=== PATIENT | female | born 2000 | race Two or more races ===

== ENCOUNTER 2025-04-12 10:57 | Emergency (ER) | payer MEDICAID, SELFPAY ==
[2025-04-12 11:21] VITALS: BP 109/75; PULSE 73; RESP 18; TEMP 36.8; O2SAT 98; BMI 30.5
--- NOTE | 2025-04-12 11:35 | XR_ITS ---
EXAMINATION: US OB <= 14 weeks fetus ORDERING PROVIDER: AVA Ha HISTORY: vaginal bleeding TECHNIQUE: Multiplanar still ultrasonography of the pelvis was performed using grayscale imaging, supplemented by color and spectral Doppler as needed. Images were performed transabdominally. COMPARISON: None. FINDINGS: Uterus measures 9.2 x 5.3 x 6.6 cm. Within the fundus, there is a round fluid echogenicity measuring up to 1.4 cm. No yolk sac or pole are seen. Mean sac diameter corresponds to gestational age of 6 weeks 2 days. Right ovary measures 2.7 x 1.2 x 2.0 cm and demonstrates internal flow. Left ovary measures 4.7 x 2.5 x 3.1 cm and demonstrates internal flow. There is no fluid in the pouch of Patrick. IMPRESSION: Round fluid collection in the uterine fundus, which probably represents a gestational sac without yolk sac or pole identified. If this does represent a gestational sac, then clinical and sonographic dates are concordant. Recommend close clinical and imaging follow-up.
--- NOTE | 2025-04-12 11:36 | PD.EDABDPN ---
ED Abdominal Pain RME/HPI General Chief Complaint: Abdominal Pain Stated complaint: LOWER ABD/BACK PAIN, VAG BLEEDING Time seen by provider: 04/12/25 11:00 Arrival date/time: 04/12/25 10:57 24-year-old female with no known medical history presents to the emergency room with a chief complaint of vaginal bleeding and bilateral lower abdominal pain x 2 days Source: patient Mode of arrival: ambulatory Limitations: no limitations Related Data Allergies Allergy/AdvReac Type Severity Reaction Status Date / Time No Known Allergies Allergy Verified 04/12/25 11:02 Review of Systems Review of Systems Systems Reviewed: All systems reviewed, normal except as documented Constitutional Constitutional: Reports system reviewed and no additional complaints, except as documented, Denies fatigue, Denies fever(s), Denies headache(s) and Denies weakness Eyes Eyes: Reports system reviewed and no additional complaints, except as documented, Denies blurry vision and Denies change in vision ENT Ears, Nose, Mouth, and Throat: Reports system reviewed and no additional complaints, except as documented, Denies otalgia, Denies headache(s), Denies nasal congestion, Denies throat swelling and Denies vertigo Cardiovascular Cardiovascular: Reports system reviewed and no additional complaints, except as documented, Denies chest pain, Denies dyspnea and Denies dyspnea on exertion Respiratory Respiratory: Reports system reviewed and no additional complaints, except as documented, Denies chest congestion, Denies cough, Denies dyspnea, Denies dyspnea on exertion and Denies wheezing Gastrointestinal Gastrointestinal: Reports system reviewed and no additional complaints, except as documented, Reports abdominal pain, Reports cramping, Reports nausea and Denies vomiting Genitourinary Genitourinary: Reports system reviewed and no additional complaints, except as documented Musculoskeletal Musculoskeletal: Reports system reviewed and no additional complaints, except as documented and Denies back pain Integumentary/Breasts Skin/Breast: Reports system reviewed and no additional complaints, except as documented and Denies wounds Neurologic Neurologic: Reports system reviewed and no additional complaints, except as documented, Denies confusion, Denies headache(s), Denies lack of coordination, Denies vertigo and Denies weakness Psychiatric Psychiatric: Reports system reviewed and no additional complaints, except as documented, Denies anxiety, Denies confusion, Denies depression, Denies paranoia, Denies suicidal ideation and Denies tactile hallucinations Endocrine Endocrine: Reports system reviewed and no additional complaints, except as documented and Denies fatigue Hematologic/Lymphatic Hematologic/Lymphatic: Reports system reviewed and no additional complaints, except as documented and Denies lymphadenopathy Allergic/Immunologic Allergic/Immunologic: Reports system reviewed and no additional complaints, except as documented, Denies throat swelling, Denies urticaria and Denies wheezing Past Medical History Social History SMOKING STATUS: Never smoker ED Exam General Limitations: Present no limitations General appearance: Present alert and in no apparent distress Head Head exam: Present atraumatic Eye Eye exam: Present normal appearance, PERRL and EOMI ENT ENT exam: Present normal exam, normal oropharynx and mucous membranes moist Neck Neck exam: Present normal inspection, full ROM and trachea midline Chest Chest inspection: Present normal inspection and symmetric chest wall rise Respiratory Respiratory exam: Present normal lung sounds bilaterally Cardiovascular Cardiovascular exam: Present regular rate, normal rhythm and normal heart sounds Abdominal Exam Abdominal exam: Present soft and normal bowel sounds Extremities Exam Extremities exam: Present normal inspection and full ROM Back Exam Back exam: Present normal inspection and full ROM Neurological Exam Neurological exam: Present alert, oriented X3 and CN II-XII intact Psychiatric Psychiatric exam: Present normal affect and normal mood Skin Skin exam: Present warm, dry, intact and normal color Course Quality Measures none Orders Category Date Time Status US OB <= 14 weeks fetus Stat Exams 04/12/25 11:35 Completed ABO/RH Type Stat Lab 04/12/25 11:46 Completed Beta HCG,Quantitative Stat Lab 04/12/25 11:46 Completed CBC Stat Lab 04/12/25 11:46 Completed CMP [Comprehensive Metabolic Panel] Stat Lab 04/12/25 11:46 Completed UA [Urinalysis] Stat Lab 04/12/25 11:48 Completed Vital Signs Vital signs: Vital Signs Temperature 98.2 F 04/12/25 11:21 Pulse Rate 73 04/12/25 11:21 Respiratory Rate 18 04/12/25 11:21 Blood Pressure 109/75 04/12/25 11:21 Pulse Oximetry (%) 98 04/12/25 11:21 Oxygen Delivery Method Room Air 04/12/25 11:21 Abdominal Pain MDM MDM Narrative MDM Narrative:: 24-year-old female with no known medical history presents to the emergency room with a chief complaint of vaginal bleeding and bilateral lower abdominal pain x 2 days Patient is hemodynamically stable and in no apparent distress Physical examination shows bilateral lower abdominal tenderness with palpation. Ultrasound OB shows a at 6 weeks and 2 days. Currently there is no heart tones or yolk sac. hCG levels are at 31,000. Patient was educated to return to the emergency room in 3 days for repeat blood work and ultrasound to assess for viability There is no ectopic Patient was discharged and educated to follow-up with primary care provider in the next 24 to 48 hours and return to the emergency room for any evidence of worsening signs or symptoms Patient data External records reviewed:: [facility] previous records Clinical information provided by:: patient Social determinants that could affect healthcare access:: none Patient has the following chronic illnesses:: No chronic illness How is presenting disease/condition affected by chronic disease/condition?: no chronic disease Evaluation data The following diagnostics were reviewed and interpreted by me:: lab results and radiology exam(s) Lab and/or radiology exams considered but not ordered:: Labs and radiology exams considered and ordered Interpretation Summary: OB ultrasound-FINDINGS: Uterus measures 9.2 x 5.3 x 6.6 cm. Within the fundus, there is a round fluid echogenicity measuring up to 1.4 cm. No yolk sac or pole are seen. Mean sac diameter corresponds to gestational age of 6 weeks 2 days. Right ovary measures 2.7 x 1.2 x 2.0 cm and demonstrates internal flow. Left ovary measures 4.7 x 2.5 x 3.1 cm and demonstrates internal flow. There is no fluid in the pouch of Patrick. IMPRESSION: Round fluid collection in the uterine fundus, which probably represents a gestational sac without yolk sac or pole identified. If this does represent a gestational sac, then clinical and sonographic dates are concordant. Recommend close clinical and imaging follow-up. Medications / Prescriptions Medications or Prescriptions considered but not ordered:: No medication given Medication administrations:: No medication given Consultations Consultation(s) initiated? (list below): No Diagnosis Differential diagnosis abdominal pain: abdominal pain, constipation, gastroenteritis and other (Abdominal cramping affecting ) Most likely diagnosis given after review of the tests above:: Abdominal cramping affecting Admission Indicated Admission indicated?: not indicated Admission Request Was there a request for admission?: No Disposition Plan Disposition Plan: Discharge Discharge Attestation Discharge Attestation: The patient and all family members were given an opportunity to ask questions and understood the discharge instructions. Discharge instructions specifically effects, indications for sooner follow up or return to the emergency department, and the expected course of current diagnosis. Patient condition: Stable Discharge Plan Plan Patient Disposition: HOME (Self Care) Discharge Disposition comment: Stable Prescriptions/Referrals Referrals: Lori Fragoso FNP-C [Primary Care Provider] - In 1 week Problem List Clinical Impression: Abdominal cramping affecting Patient/Caregiver Discharge Instructions Education Materials: ED Abdominal Pain Unkn Cause Fem Additional Instructions: Please follow-up with your primary care provider in the next 24 to 48 hours Ultrasound was completed and shows you are currently 6 weeks and 2 days. At this time the ultrasound was unable to visualize or get any heart tones on the . This could be due to your being very early on. Your hCG levels are at 31,570 which are within normal limits. Please follow-up with your [employer] in the next 24 to 48 hours for repeat blood work and ultrasound For any evidence of worsening signs or symptoms return to the emergency room immediately Print Language: Serbian Stand Alone Forms: April Award Info., Work/School Release, Patient Portal Info Letter CHEL/AVA Supervising Physician WILIAN Supervising Physician: Dr. Cerda
[2025-04-12 11:55] LABS: Collection Type, Urine Clean Catch
[2025-04-12 11:57] LABS: Basophils # (Auto) 0.1 Thou/mm3 (0.0-0.2); Basophils % (Auto) 1 % (0-2.5); Eosinophils # (Auto) 0.0 Thou/mm3 (0.0-0.5); Eosinophils % (Auto) 0 % (0-10); Hematocrit 33.6 % (36.0-46.0); Hemoglobin 10.6 g/dL (12.0-16.0); Immature Granulocytes Auto 0.01 Thou/mm3 (0.00-0.00); Lymphocytes # (Auto) 2.8 Thou/mm3 (1.0-4.8); Lymphocytes % (Auto) 36 % (10-50); Mean Corpuscular HGB Conc 31.5 g/dl (31.0-37.0); Mean Corpuscular Hemoglobin 26.1 pg (25.0-35.0); Mean Corpuscular Volume 83 fL (80-100); Monocytes # (Auto) 0.7 Thou/mm3 (0.0-0.8); Monocytes % (Auto) 9 % (0-12); Neutrophils # (Auto) 4.1 Thou/mm3 (1.8-7.7); Neutrophils % (Auto) 54 % (37-80); Nucleated Red Blood Cell # 0.00 Thou/mm3 (0.00-0.00); Nucleated Red Blood Cell % 0 /100 WBC (0); Platelet Count 283 Thou/mm3 (140-440); RDW Standard Deviation 52.8 fL (36.4-46.3); Red Blood Count 4.06 Miln/mm3 (4.00-5.20); White Blood Count 7.7 Thou/mm3 (3.6-11.0)
[2025-04-12 12:01] LABS: Bilirubin,Urine Negative (Negative); Blood,Urine Negative (Negative); Clarity,Urine Clear (Clear/Hazy); Color,Urine Colorless (Lt Yel-Yel); Glucose, Urine Negative (Negative); Ketones,Urine Negative (Negative); Leukocyte Esterase,Urine Negative (Negative); Nitrite,Urine Negative (Negative); PH,Urine 6.5 (5.0-7.0); Protein,Urine Negative (Neg - Trace); RBC,Urine 3 /hpf (0-3); Specific Gravity,Urine 1.005 (1.001-1.035); Squamous Epithelial Cell,Urine 2 /hpf (0-5); Urobilinogen,Urine Negative mg/dL (0.0-1.0); WBC,Urine 1 /hpf (0-5)
[2025-04-12 13:02] LABS: Alanine Aminotransferase 11 U/L (10-49); Albumin, Serum 4.2 gm/dL (3.5-5.0); Albumin/Globulin Ratio 1.5 (1.2-2.2); Anion Gap 8 (7-16); Aspartate Amino Transferase 19 U/L (0-34); BUN/Creatinine Ratio 9 Ratio (12-20); Bilirubin,Total 0.7 mg/dL (0.3-1.2); Blood Urea Nitrogen 6 mg/dL (9-23); Calcium 8.7 mg/dL (8.3-10.6); Calcium (Corrected) 8.7 mg/dL (8.5-10.1); Carbon Dioxide 22.7 mMol/L (20.0-31.0); Chloride 108 mMol/L (98-107); Creatinine (Component) 0.7 mg/dL (0.6-1.3); Estimated Creatinine Clearance 111.5 mL/min (>60); Globulin 2.8 gm/dL (2.3-3.5); Glucose 85 mg/dL (74-106); Osmolality,Calculated 274 (275-295); Potassium 3.9 mMol/L (3.4-5.1); Sodium 139 mMol/L (136-145); Total Protein 7.0 gm/dL (5.7-8.2); eGFR > 60 See Note
[2025-04-12 13:17] LABS: Alkaline Phosphatase 49 U/L (46-116)
== END 2025-04-12 13:54 | disposition home or self-care (01) ==
PROVIDERS: Emergency Provider Nurse Practitioner Family
DX: O26.891 Other specified pregnancy related conditions, first trimester (principal); R10.32 Left lower quadrant pain; R10.31 Right lower quadrant pain; Z3A.01 Less than 8 weeks gestation of pregnancy
CPT/HCPCS: 36415; 76801; 80053; 81001; 84702; 85025; 86900; 86901; 99283